=== PATIENT | female | born 1980 | race American Indian/Alaskan Native ===

== ENCOUNTER 2021-10-31 08:56 | Emergency (ER) | payer OTHER ==
[2021-10-31] MEDS ORDERED: METOCLOPRAMIDE 10 MG/2 ML INJ IV ONE (09:11)
[2021-10-31] MEDS ORDERED: SODIUM CHLORIDE 0.9% 1000 ML 1,000 ML IV ONE (09:55)
--- NOTE | 2021-10-31 09:59 | Emergency Department Report ---
HPI - General Chief Complaint: Nausea/Vomiting/Diarrhea Time Seen by Provider: 10/31/21 09:43 - HPI HPI: Room 24 Patient is a 40-year-old female presenting with a chief complaint of nausea and vomiting. Patient states she has had nausea vomiting since yesterday. Patient states she was recently diagnosed with diabetes and started metformin. Patient states she is been intermittently compliant with her metformin was hospitalized 1 week ago for DKA. The patient states she is still been intermittently compliant with her metformin over the past week and yesterday developed nausea vomiting. Patient denies diarrhea or fever. Patient denies history of dysuria or hematuria. Patient states she had a CT of the abdomen pelvis performed last week for her recent admission which was negative. Patient states she underwent an EGD and was told she needs to undergo a gastric emptying study ED Past Medical Hx - Past Medical History Previous Medical History?: Yes Hx Hypertension: Yes Hx Diabetes: Yes - Surgical History Additional Surgical History: - Family History Family history: no significant - Social History Smoking Status: Current Every Day Smoker (1/2 pack/day) Substance Use Type: None (Denies illicit drug use), Alcohol (Occasional) - Medications Home Medications: Home Medications Medication Instructions Recorded Confirmed Last Taken Type Promethazine [Phenergan] 25 mg AR Q6HR PRN #20 supp.rect 10/31/21 Unknown Rx ED Review of Systems ROS: Stated complaint: N/V Other details as noted in HPI Constitutional: denies: fever Eyes: denies: eye pain ENT: denies: ear pain Respiratory: no symptoms reported Cardiovascular: denies: chest pain Endocrine: no symptoms reported Gastrointestinal: nausea, vomiting. denies: abdominal pain Genitourinary: denies: dysuria, hematuria Musculoskeletal: denies: back pain Neurological: denies: headache Physical Exam - Physical Exam Vital Signs: Vital Signs 10/31/21 10/31/21 08:58 09:27 Pulse Rate 73 Respiratory 18 Rate Blood Pressure 186/96 [Left] O2 Sat by Pulse 100 100 Oximetry Physical Exam: GENERAL: The patient is well-developed well-nourished female lying on stretcher not appearing to be in acute distress. [] HEENT: Normocephalic. Atraumatic. Extraocular motions are intact. Patient has moist mucous membranes. NECK: Supple. Trachea midline CHEST/LUNGS: Clear to auscultation. There is no respiratory distress noted. HEART/CARDIOVASCULAR: Regular. There is no tachycardia. There is no gallop rub or murmur. ABDOMEN: Abdomen is soft, nontender. Patient has normal bowel sounds. There is no abdominal distention. SKIN: There is no rash. There is no edema. There is no diaphoresis. NEURO: The patient is awake, alert, and oriented. The patient is cooperative. The patient has no focal neurologic deficits. The patient has normal speech. GCS 15 MUSCULOSKELETAL: There is no evidence of acute injury. ED Course Vital Signs 10/31/21 10/31/21 08:58 09:27 Pulse Rate 73 Respiratory 18 Rate Blood Pressure 186/96 [Left] O2 Sat by Pulse 100 100 Oximetry ED Medical Decision Making - Lab Data Result diagrams: 10/31/21 10:11 10/31/21 10:11 Laboratory Tests 10/31/21 10/31/21 10/31/21 09:19 10:11 10:11 WBC 13.2 H RBC 4.44 Hgb 13.4 Hct 40.0 MCV 90 MCH 30 MCHC 34 RDW 13.3 Plt Count 410 Seg Neutrophils % Facility Planner VBG pH Sodium 137 Potassium 3.9 Chloride 98.3 Carbon Dioxide 20 L Anion Gap 23 BUN 6 L Creatinine 0.7 Estimated GFR > 60 BUN/Creatinine Ratio 9 Glucose 279 H POC Glucose 263 H Calcium 10.4 H Total Bilirubin 0.40 AST 14 ALT 15 Alkaline Phosphatase 96 Total Protein 7.7 Albumin 4.9 Albumin/Globulin Ratio 1.8 Lipase 18 HCG, Qual Urine Color Urine Turbidity Urine pH Ur Specific [place] Urine Protein Urine Glucose (UA) Urine Ketones Urine Blood Urine Nitrite Urine Bilirubin Urine Urobilinogen Ur Leukocyte Esterase Urine WBC (Auto) Urine RBC (Auto) U Epithel Cells (Auto) Urine Mucus 10/31/21 10/31/21 10/31/21 10:11 10:11 10:54 WBC RBC Hgb Hct MCV MCH MCHC RDW Plt Count Seg Neutrophils % VBG pH 7.488 H Sodium Potassium Chloride Carbon Dioxide Anion Gap BUN Creatinine Estimated GFR BUN/Creatinine Ratio Glucose POC Glucose Calcium Total Bilirubin AST ALT Alkaline Phosphatase Total Protein Albumin Albumin/Globulin Ratio Lipase HCG, Qual Negative Urine Color Yellow Urine Turbidity Clear Urine pH 9.0 H Ur Specific [place] 1.023 Urine Protein <15 mg/dl Urine Glucose (UA) >=500 Urine Ketones 80 Urine Blood Neg Urine Nitrite Neg Urine Bilirubin Neg Urine Urobilinogen < 2.0 Ur Leukocyte Esterase Neg Urine WBC (Auto) < 1.0 Urine RBC (Auto) 1.0 U Epithel Cells (Auto) 1.0 Urine Mucus Few - Differential Diagnosis DKA, delayed gastric emptying Critical care attestation.: If time is entered above; I have spent that time in minutes in the direct care of this critically ill patient, excluding procedure time. ED Disposition Clinical Impression: Nausea Disposition: 01 HOME / SELF CARE / HOMELESS Is pt being admited?: No Does the pt Need Aspirin: No Condition: Stable Instructions: Nausea and Vomiting, Adult Additional Instructions: Return to the emergency department should you develop worsening symptoms, inability to tolerate food or liquids, high fever or any other concerns Prescriptions: Promethazine [Phenergan] 25 mg AR Q6HR PRN #20 supp.rect PRN Reason: Vomiting Referrals: Your, retail performance specialist [Other] - [facility] Time of Disposition: 12:02
[2021-10-31] MEDS ORDERED: PROMETHAZINE 25 MG TAB PO ONE (10:20)
[2021-10-31] MEDS ORDERED: ONDANSETRON 4 MG/2 ML INJ IV ONE (10:21)
[2021-10-31 10:29] LABS: Hemoglobin 13.4 gm/dl (10.1-14.3); Mean Corpuscular HGB Conc 34 % (30-34); Mean Corpuscular Volume 90 fl (79-97); Platelet Count 410 K/mm3 (140-440); Red Blood Count 4.44 M/mm3 (3.65-5.03); Red Cell Distribution Width 13.3 % (13.2-15.2)
[2021-10-31 10:45] LABS: Alanine Aminotransferase 15 units/L (7-56); Albumin 4.9 g/dL (3.9-5); BUN/Creatinine Ratio 9; Blood Urea Nitrogen 6 mg/dL (7-17); Calcium 10.4 mg/dL (8.4-10.2); Hemolysis Index 9
[2021-10-31 11:24] LABS: Bilirubin,Urine NEG (Negative); Blood,Urine NEG (Negative); Color,Urine Yellow (Yellow); Protein,Urine <15 mg/dL mg/dL (Negative); Urobilinogen,Urine < 2.0 mg/dL (<2.0)
[2021-10-31 11:29] LABS: Mucus,Urine FEW /HPF; WBC,Urine < 1.0 /HPF (0.0-6.0)
[2021-10-31] MEDS ORDERED: PROMETHAZINE 25 MG RECT SUPP PR ONE (11:57)
[2021-10-31 12:09] LABS: Eosinophils % (Manual) 0 % (0.0-4.3); Total Cells Counted 100
[2021-10-31 12:10] LABS: Basophils % (Manual) 0 % (0.0-1.8); Platelet Estimate Consistent w Auto; RBC Morphology Normal
[2021-10-31 12:42] VITALS: BP 180/97
== END 2021-10-31 12:43 | disposition home or self-care (01) ==
LOC: ED 08:56
DX: R11.2 Nausea with vomiting, unspecified (principal); I10 Essential (primary) hypertension; E11.9 Type 2 diabetes mellitus without complications; Z98.890 Other specified postprocedural states; F17.290 Nicotine dependence, other tobacco product, uncomplicated
CPT/HCPCS: 36415; 80053; 81001; 82805; 82962; 83690; 84703; 85007; 85025; 96361; 96374; 96375; 99284; J2405; J2765; J7030